=== PATIENT | male | born 1985 ===

== ENCOUNTER → 2017-11-07 | Outpatient (CLI) | payer OTHER ==
[~2017-11-07] MED LIST: PANT40TA65 PO
[2017-11-07 08:37] LABS: PLATELET COUNT, AUTOMATED 245 K/uL (150-450)
[2017-11-07 10:31] LABS: LDL CHOLESTEROL 46 mg/dl
== END ==
LOC: LAB 07:59
PROVIDERS: ATTEND Nurse Practitioner Family
DX: Z00.00 Encounter for general adult medical examination without abnormal findings (principal); R53.83 Other fatigue; F32.9 Major depressive disorder, single episode, unspecified
CPT/HCPCS: 36415; 82040; 82247; 82310; 82374; 82435; 82465; 82565; 82947; 83718; 84075; 84132; 84155; 84295; 84403; 84443; 84450; 84460; 84478; 84520; 85025